=== PATIENT | female | born 1995 | race Two or more races ===

== ENCOUNTER 2020-03-30 10:47 | Emergency (ER) | payer OTHER ==
[~2020-03-30] VITALS: Ht 165.1 cm; Wt 113.4 kg
[2020-03-30] MEDS ORDERED: SODIUM CHLORIDE 0.9% 1,000 ML IV ONE (12:15)
[2020-03-30] MEDS ORDERED: ONDANSETRON HCL 4 MG/2 ML VIAL IV ONE (12:15)
[2020-03-30 13:35] VITALS: BP 138/64
[2020-03-30 14:37] LABS: Basophils # (auto) 0.1 10 ^3/uL (0-0.2); Basophils % (auto) 0.8 % (0.0-2.0); Eosinophils # (auto) 0 10 ^3/uL (0-0.8); Eosinophils % (auto) 0.2 % (0.0-7.0); Hematocrit 37.6 % (36.0-46.0); Hemoglobin 12.8 g/dL (12.2-16.2); Lymphocytes # (auto) 1.7 10 ^3/uL (0.4-5.4); Mean Corpuscular Volume 99.9 fL (80.0-100.0); Monocytes # (auto) 0.4 10 ^3/uL (0-1.3); Monocytes % (auto) 4.5 % (0.0-12.0); Neutrophils # (auto) 6.9 10 ^3/uL (1.6-8.6); Neutrophils % (auto) 75.5 % (37.0-80.0); Platelet Count (auto) 397 10^3/uL (140-450); Red Blood Cells 3.77 10^6/uL (4.0-5.20); White Blood Cell 9.2 10^3/uL (4.4-10.8)
[2020-03-30 14:58] LABS: Urine Bacteria NONE SEEN /hpf (None Seen); Urine Blood 3+ /uL (Negative); Urine Mucus FEW (None Seen); Urine Specific Gravity 1.023 (1.001-1.035); Urine WBC 813 /hpf (0 - 5)
[2020-03-30 15:00] LABS: Albumin 4.3 g/dL (3.4-5.0); Potassium 3.6 mmol/L (3.5-5.1)
[2020-03-30] MEDS ORDERED: HYDROcodone-ACET 5/325MG TAB PO ONE (15:00)
[2020-03-30 15:06] LABS: BUN/Creatinine Ratio 17.2; Bilirubin, Total 1.4 mg/dL (0.2-1.0); Total Protein 8.2 g/dL (6.4-8.2)
[2020-03-30] MEDS ORDERED: cefTRIAXone 1GM/50ML D5W 50 ML IV ONE (15:15)
== END 2020-03-30 16:15 | disposition home or self-care (01) ==
LOC: ER 10:47
DX: N39.0 Urinary tract infection, site not specified (principal)
CPT/HCPCS: 36415; 74176; 80053; 81001; 85025; 96361; 96365; 96375; 99284; J0696; J2405

== ENCOUNTER 2020-04-23 15:12 | Emergency (ER) | payer MEDICAID, OTHER ==
[~2020-04-23] VITALS: Ht 165.1 cm; Wt 113.4 kg
[2020-04-23] MEDS ORDERED: diphenhdrAMINE HCL 50 MG/1 ML VL IM ONE (16:15)
[2020-04-23] MEDS ORDERED: PROMETHAZINE HCL 25 MG/ML 1ML IV PRN (17:00)
[2020-04-23] MEDS ORDERED: SODIUM CHLORIDE 0.9% 1,000 ML IVB ONE (17:00)
[2020-04-23] MEDS ORDERED: ONDANSETRON HCL 4 MG/2 ML VIAL IV PRN (18:30)
[2020-04-23 18:31] LABS: Calcium 9.2 mg/dL (8.5-10.1); Magnesium 2.1 mg/dL (1.6-2.6); Potassium 3.6 mmol/L (3.5-5.1)
[2020-04-23 18:34] LABS: BUN/Creatinine Ratio 10.8; Bilirubin, Total 0.8 mg/dL (0.2-1.0); Total Protein 7.8 g/dL (6.4-8.2)
[2020-04-23 18:39] LABS: Urine Bacteria NONE SEEN /hpf (None Seen); Urine Blood 3+ /uL (Negative); Urine Mucus FEW (None Seen); Urine WBC 463 /hpf (0 - 5)
[2020-04-23 18:43] LABS: Urine Specific Gravity 1.025 (1.001-1.035)
[2020-04-23 18:53] LABS: Basophils # (auto) 0 10 ^3/uL (0-0.2); Basophils % (auto) 0.5 % (0.0-2.0); Eosinophils # (auto) 0.1 10 ^3/uL (0-0.8); Hematocrit 40.9 % (36.0-46.0); Hemoglobin 13.9 g/dL (12.2-16.2); Lymphocytes # (auto) 2.6 10 ^3/uL (0.4-5.4); Lymphocytes % (auto) 30.9 % (10.0-50.0); Mean Corpuscular Hemoglobin 33.9 pg (28.0-32.0); Mean Corpuscular Volume 99.8 fL (80.0-100.0); Monocytes # (auto) 0.5 10 ^3/uL (0-1.3); Neutrophils # (auto) 5.2 10 ^3/uL (1.6-8.6); Neutrophils % (auto) 61.6 % (37.0-80.0); Nucleated Red Blood Cells % 0.1 %; Platelet Count (auto) 373 10^3/uL (140-450); Red Blood Cells 4.09 10^6/uL (4.0-5.20); Red Cell Distribution Width 13.2 % (11.8-14.3); White Blood Cell 8.4 10^3/uL (4.4-10.8)
[2020-04-23] MEDS ORDERED: MORPHINE SULF INJ 2 MG/ML SYRINGE 1ML IV ONE (19:00)
[2020-04-23] MEDS ORDERED: ONDANSETRON HCL 4 MG/2 ML VIAL IV ONE (19:00)
[2020-04-23 21:07] VITALS: BP 128/50
[2020-04-23] MEDS ORDERED: cefTRIAXone 1GM/50ML D5W 50 ML IV ONE (21:15)
== END 2020-04-23 22:10 | disposition left against medical advice (07) ==
LOC: ER 15:12
DX: R31.9 Hematuria, unspecified (principal); Z32.02 Encounter for pregnancy test, result negative; Z90.49 Acquired absence of other specified parts of digestive tract; Z87.442 Personal history of urinary calculi; Z88.6 Allergy status to analgesic agent
CPT/HCPCS: 36415; 76775; 76830; 76856; 80053; 81001; 81025; 83735; 85025; 87086; 96361; 96372; 96374; 96375; 99285; J1200; J2270; J2405; J7030; J0696

== ENCOUNTER 2020-08-12 09:29 | Emergency (ER) | payer MEDICAID ==
[~2020-08-12] VITALS: Ht 165.1 cm; Wt 111.1 kg
[2020-08-12 10:21] LABS: Basophils # (auto) 0 10 ^3/uL (0-0.2); Basophils % (auto) 0.5 % (0.0-2.0); Eosinophils # (auto) 0.1 10 ^3/uL (0-0.8); Eosinophils % (auto) 0.5 % (0.0-7.0); Hematocrit 38.7 % (36.0-46.0); Hemoglobin 13.4 g/dL (12.2-16.2); Lymphocytes % (auto) 9.2 % (10.0-50.0); Mean Corpuscular Hemoglobin 35.5 pg (28.0-32.0); Mean Corpuscular Hgb Conc. 34.5 g/dL (32.0-36.0); Mean Corpuscular Volume 102.8 fL (80.0-100.0); Monocytes # (auto) 0.4 10 ^3/uL (0-1.3); Neutrophils # (auto) 9.1 10 ^3/uL (1.6-8.6); Neutrophils % (auto) 85.8 % (37.0-80.0); Platelet Count (auto) 386 10^3/uL (140-450); Red Blood Cells 3.77 10^6/uL (4.0-5.20); Red Cell Distribution Width 14.3 % (11.8-14.3); White Blood Cell 10.6 10^3/uL (4.4-10.8)
[2020-08-12 10:46] LABS: Calcium 8.7 mg/dL (8.5-10.1); Potassium 3.9 mmol/L (3.5-5.1)
[2020-08-12 10:53] LABS: BUN/Creatinine Ratio 21.5; Bilirubin, Total 1.1 mg/dL (0.2-1.0); Total Protein 7.6 g/dL (6.4-8.2)
[2020-08-12] MEDS ORDERED: ONDANSETRON HCL 4 MG/2 ML VIAL IV ONE (11:15)
[2020-08-12] MEDS ORDERED: SODIUM CHLORIDE 0.9% 1,000 ML IV ONE (11:15)
[2020-08-12] MEDS ORDERED: MORPHINE SULF INJ 2 MG/ML SYRINGE 1ML IV ONE (11:15)
[2020-08-12 11:52] LABS: Urine Bacteria FEW /hpf (None Seen); Urine Blood 3+ /uL (Negative); Urine Specific Gravity 1.033 (1.001-1.035); Urine WBC 488 /hpf (0 - 5)
[2020-08-12 12:50] VITALS: BP 156/76
== END 2020-08-12 12:55 | disposition home or self-care (01) ==
LOC: ER 09:29
DX: R10.2 Pelvic and perineal pain (principal); N93.9 Abnormal uterine and vaginal bleeding, unspecified; Z90.49 Acquired absence of other specified parts of digestive tract; Z88.8 Allergy status to other drugs, medicaments and biological substances
CPT/HCPCS: 36415; 74176; 80053; 81001; 84702; 85025; 85049; 96361; 96374; 96375; 99284; J2270; J2405; J7030

== ENCOUNTER 2020-08-13 19:05 | Emergency (ER) | payer MEDICAID, OTHER ==
[~2020-08-13] VITALS: Ht 165.1 cm; Wt 111.1 kg
[2020-08-13 20:28] VITALS: BP 133/85
[2020-08-13] MEDS ORDERED: HYDROcodone-ACET 10/325MG TAB PO ONE (20:30)
== END 2020-08-13 20:50 | disposition home or self-care (01) ==
LOC: ER 19:05
DX: N80.9 Endometriosis, unspecified (principal); Z90.49 Acquired absence of other specified parts of digestive tract; Z88.8 Allergy status to other drugs, medicaments and biological substances

== ENCOUNTER 2020-09-24 10:41 | Emergency (ER) | payer MEDICAID, OTHER ==
[~2020-09-24] VITALS: Ht 165.1 cm; Wt 108.9 kg
[2020-09-24 13:15] VITALS: BP 120/64
== END 2020-09-24 13:27 | disposition home or self-care (01) ==
LOC: ER 10:41
DX: S80.862A Insect bite (nonvenomous), left lower leg, initial encounter (principal); L01.00 Impetigo, unspecified; S80.861A Insect bite (nonvenomous), right lower leg, initial encounter; Z88.6 Allergy status to analgesic agent; Z90.49 Acquired absence of other specified parts of digestive tract; W57.XXXA Bitten or stung by nonvenomous insect and other nonvenomous arthropods, initial encounter; Y93.89 Activity, other specified; Y92.89 Other specified places as the place of occurrence of the external cause; Y99.8 Other external cause status

== ENCOUNTER 2020-10-15 19:52 | Emergency (ER) | payer MEDICAID ==
[~2020-10-15] VITALS: Ht 165.1 cm; Wt 108.9 kg
[2020-10-15 19:52] VITALS: BP 124/72
[2020-10-15 22:38] LABS: Eosinophils # (auto) 0.2 10 ^3/uL (0-0.8); Hemoglobin 13.1 g/dL (12.2-16.2); Mean Corpuscular Volume 100.8 fL (80.0-100.0)
[2020-10-15 22:40] LABS: Basophils # (auto) 0.1 10 ^3/uL (0-0.2); Basophils % (auto) 1.1 % (0.0-2.0); Eosinophils % (auto) 2.5 % (0.0-7.0); Hematocrit 37.9 % (36.0-46.0); Lymphocytes # (auto) 1.9 10 ^3/uL (0.4-5.4); Lymphocytes % (auto) 26.6 % (10.0-50.0); Mean Corpuscular Hemoglobin 34.8 pg (28.0-32.0); Mean Corpuscular Hgb Conc. 34.5 g/dL (32.0-36.0); Monocytes # (auto) 0.6 10 ^3/uL (0-1.3); Monocytes % (auto) 8.2 % (0.0-12.0); Neutrophils # (auto) 4.4 10 ^3/uL (1.6-8.6); Neutrophils % (auto) 61.6 % (37.0-80.0); Red Blood Cells 3.76 10^6/uL (4.0-5.20); White Blood Cell 7.1 10^3/uL (4.4-10.8)
[2020-10-15 22:54] LABS: Albumin 3.7 g/dL (3.4-5.0); BUN/Creatinine Ratio 18.3; Magnesium 2.1 mg/dL (1.6-2.6); Potassium 3.8 mmol/L (3.5-5.1)
[2020-10-15 22:56] LABS: Bilirubin, Total 1.2 mg/dL (0.2-1.0); Total Protein 7.3 g/dL (6.4-8.2)
== END 2020-10-16 01:30 | disposition left against medical advice (07) ==
LOC: ER 19:54
DX: G43.909 Migraine, unspecified, not intractable, without status migrainosus (principal); R42 Dizziness and giddiness; R11.2 Nausea with vomiting, unspecified; Z53.21 Procedure and treatment not carried out due to patient leaving prior to being seen by health care provider
CPT/HCPCS: 36415; 70450; 80053; 83735; 85025

== ENCOUNTER 2021-01-23 12:23 | Emergency (ER) | payer MEDICAID, OTHER ==
[~2021-01-23] VITALS: Ht 165.1 cm; Wt 105.2 kg
[2021-01-23 12:30] VITALS: BP 120/60
[2021-01-23] MEDS ORDERED: MORPHINE SULFATE INJECTION 2 MG/ML SYRG IM ONE (13:15)
[2021-01-23] MEDS ORDERED: ONDANSETRON ODT 4 MG TAB PO ONE (13:15)
[2021-01-23 13:45] LABS: Urine Bacteria FEW /hpf (None Seen); Urine Blood Negative /uL (Negative); Urine Mucus FEW (None Seen); Urine Specific Gravity 1.019 (1.001-1.035); Urine WBC 1 /hpf (0 - 5)
== END 2021-01-23 21:44 | disposition left against medical advice (07) ==
LOC: ER 12:23
DX: R10.84 Generalized abdominal pain (principal); R11.2 Nausea with vomiting, unspecified; Z32.02 Encounter for pregnancy test, result negative; Z90.49 Acquired absence of other specified parts of digestive tract; Z88.6 Allergy status to analgesic agent
CPT/HCPCS: 81001; 81025

== ENCOUNTER 2021-01-24 10:39 | Emergency (ER) | payer OTHER ==
[~2021-01-24] VITALS: Ht 165.1 cm; Wt 104.8 kg
[2021-01-24] MEDS ORDERED: HYDROcodone-ACET 10/325MG TAB PO ONE (11:30)
[2021-01-24 12:12] LABS: Urine Bacteria FEW /hpf (None Seen); Urine Blood Negative /uL (Negative); Urine Mucus FEW (None Seen); Urine Specific Gravity 1.025 (1.001-1.035); Urine WBC 2 /hpf (0 - 5)
[2021-01-24 13:23] VITALS: BP 153/78
== END 2021-01-24 13:25 | disposition home or self-care (01) ==
LOC: ER 10:39
DX: N39.0 Urinary tract infection, site not specified (principal); N80.9 Endometriosis, unspecified; Z90.49 Acquired absence of other specified parts of digestive tract; Z88.8 Allergy status to other drugs, medicaments and biological substances
CPT/HCPCS: 81001; 81025

== ENCOUNTER 2021-07-11 13:29 | Emergency (ER) | payer MEDICAID, OTHER ==
[~2021-07-11] VITALS: Ht 165.1 cm; Wt 106.6 kg
[2021-07-11 13:29] VITALS: BP 137/92
[2021-07-11] MEDS ORDERED: HYDROcodone-ACET 10/325MG TAB PO ONE (15:30)
[2021-07-11] MEDS ORDERED: HYDR-4902 PO (15:37)
== END 2021-07-11 17:10 | disposition home or self-care (01) ==
LOC: ER 13:29
DX: R51.9 Headache, unspecified (principal); R53.1 Weakness; Z90.49 Acquired absence of other specified parts of digestive tract
CPT/HCPCS: 70450

== ENCOUNTER 2022-11-26 17:20 | Emergency (ER) | payer MEDICAID ==
[~2022-11-26] VITALS: Ht 165.1 cm; Wt 114.9 kg
[~2022-11-26 17:20] MED LIST: HYDR-4902 PO
[2022-11-26 17:38] VITALS: BP 154/85; PULSE 87; RESP 18; TEMP 98.5
[2022-11-26] MEDS ORDERED: HYDROcodone-ACET 10/325MG TAB PO ONE (20:00)
[2022-11-26 20:05] VITALS: O2SAT 98
[2022-11-26] MEDS ORDERED: HYDR-4798 PO ×2 (20:13)
[2022-11-26] MEDS ORDERED: ZOFR4T PO (20:21)
[2022-11-26] MEDS ORDERED: [UNRECOGNIZED DRUG - CODE] PO (20:29)
[2022-11-26] MEDS ORDERED: ONDANSETRON ODT 4 MG TAB PO ONE (20:30)
[2022-11-26] MEDS ORDERED: PERCOT PO ×2 (21:22→21:24)
== END 2022-11-26 20:50 | disposition home or self-care (01) ==
LOC: ER 17:20
DX: Z76.0 Encounter for issue of repeat prescription (principal); Z90.49 Acquired absence of other specified parts of digestive tract; Z98.890 Other specified postprocedural states; Z88.8 Allergy status to other drugs, medicaments and biological substances
CPT/HCPCS: 81025; 99283; Q0162

== ENCOUNTER 2022-12-10 15:17 | Emergency (ER) | payer MEDICAID ==
[~2022-12-10] VITALS: Ht 165.1 cm; Wt 114.2 kg
[~2022-12-10 15:17] MED LIST changes: +PERCOT PO; +ZOFR4T PO
[2022-12-10 16:15] LABS: Basophils # (auto) 0 10 ^3/uL (0-0.2); Basophils % (auto) 0.5 % (0.0-2.0); Eosinophils # (auto) 0.1 10 ^3/uL (0-0.8); Eosinophils % (auto) 1.7 % (0.0-7.0); Hemoglobin 13.1 g/dL (12.2-16.2); Mean Corpuscular Volume 106.5 fL (80.0-100.0); Monocytes # (auto) 0.5 10 ^3/uL (0-1.3); Neutrophils # (auto) 4.2 10 ^3/uL (1.6-8.6); Nucleated Red Blood Cells % 0.1 %
[2022-12-10 16:18] LABS: Hematocrit 39.1 % (36.0-46.0); Lymphocytes # (auto) 2.5 10 ^3/uL (0.4-5.4); Lymphocytes % (auto) 33.8 % (10.0-50.0); Mean Corpuscular Hemoglobin 35.7 pg (28.0-32.0); Mean Corpuscular Hgb Conc. 33.6 g/dL (32.0-36.0); Monocytes % (auto) 7.1 % (0.0-12.0); Neutrophils % (auto) 56.9 % (37.0-80.0); Red Blood Cells 3.67 10^6/uL (4.0-5.20); Red Cell Distribution Width 12.8 % (11.8-14.3); White Blood Cell 7.5 10^3/uL (4.4-10.8)
[2022-12-10 16:31] LABS: Alanine Aminotransferase < 9 U/L (7-40); Albumin 4.6 g/dL (3.2-4.8); Alkaline Phosphatase 54 U/L (46-116); Anion Gap 9 (5-15); Aspartate Aminotransferase 13 U/L (13-40); Bilirubin, Total 1.2 mg/dL (0.2-1.0); Blood Urea Nitrogen 9 mg/dL (9-23); Calcium 9.5 mg/dL (8.7-10.4); Carbon Dioxide 22 mmol/L (20-30); Chloride 107 mmol/L (98-107); Glucose 97 mg/dL (74-106); Potassium 4.5 mmol/L (3.5-5.1); Sodium 138 mmol/L (136-145); Total Protein 7.2 g/dL (5.7-8.2)
[2022-12-10] MEDS ORDERED: HYDROmorphone HCL 2 MG/ML VL/or syr IM ONE (18:15)
[2022-12-10] MEDS ORDERED: ONDANSETRON ODT 4 MG TAB PO ONE (18:15)
[2022-12-10] MEDS ORDERED: DICY10CA PO (18:20)
[2022-12-10] MEDS ORDERED: METO-281 PO (18:20)
[2022-12-10 18:30] VITALS: BP 156/67; PULSE 72; RESP 18; TEMP 99.5; O2SAT 95
[2022-12-12] MEDS ORDERED: METO-281 PO (13:45)
[2022-12-12] MEDS ORDERED: PANT40TA2 PO (13:45)
[2022-12-12] MEDS ORDERED: DICY10CA PO (13:45)
== END 2022-12-10 20:11 | disposition home or self-care (01) ==
LOC: ER 15:17
DX: G89.3 Neoplasm related pain (acute) (chronic) (principal); C56.9 Malignant neoplasm of unspecified ovary; C79.9 Secondary malignant neoplasm of unspecified site; Z98.890 Other specified postprocedural states; Z88.8 Allergy status to other drugs, medicaments and biological substances; Z79.899 Other long term (current) drug therapy
CPT/HCPCS: 36415; 80053; 85025

== ENCOUNTER → 2022-12-12 | Emergency (ER) | payer MEDICAID ==
[~2022-12-12] VITALS: Ht 165.1 cm; Wt 115.2 kg
[~2022-12-12] MED LIST changes: +ACETAMINOPHEN 500 MG TAB PO ONE; +DICY10CA PO; +LORazepam 0.5 MG TAB PO ONE; +METO-281 PO; +MORPHINE SULFATE 4 MG/ML SYR/VIAL IM ONE; +ONDANSETRON ODT 4 MG TAB PO ONE; +PANT40TA2 PO
[2022-12-12 12:10] VITALS: BP 152/80; PULSE 80; RESP 18; O2SAT 96
== END | disposition left against medical advice (07) ==
LOC: ER 11:50
DX: G89.3 Neoplasm related pain (acute) (chronic) (principal); R10.2 Pelvic and perineal pain; Z88.6 Allergy status to analgesic agent; Z88.8 Allergy status to other drugs, medicaments and biological substances